=== PATIENT | female | born 1970 ===

== ENCOUNTER 2022-08-01 09:44 | Emergency (ER) | payer MEDICAID ==
[~2022-08-01] VITALS: Ht 157.5 cm; Wt 75.0 kg
[2022-08-01 10:00] VITALS: BP 140/93
[2022-08-01 10:44] LABS: Basophils # (auto) 0.1 10 ^3/uL (0-0.2); Basophils % (auto) 0.7 % (0.0-2.0); Eosinophils # (auto) 0.1 10 ^3/uL (0-0.8); Eosinophils % (auto) 1.5 % (0.0-7.0); Hemoglobin 14.2 g/dL (12.2-16.2); Lymphocytes # (auto) 2.3 10 ^3/uL (0.4-5.4); Lymphocytes % (auto) 29.3 % (10.0-50.0); Mean Corpuscular Hemoglobin 26.3 pg (28.0-32.0); Mean Corpuscular Hgb Conc. 33.1 g/dL (32.0-36.0); Mean Corpuscular Volume 79.4 fL (80.0-100.0); Monocytes # (auto) 0.3 10 ^3/uL (0-1.3); Monocytes % (auto) 4.2 % (0.0-12.0); Neutrophils % (auto) 64.3 % (37.0-80.0); Nucleated Red Blood Cells % 0.2 %; Red Blood Cells 5.42 10^6/uL (4.0-5.20); Red Cell Distribution Width 14.5 % (11.8-14.3); White Blood Cell 7.8 10^3/uL (4.4-10.8)
[2022-08-01 11:03] LABS: Albumin 3.8 g/dL (3.4-5.0); Calcium 8.9 mg/dL (8.5-10.1); Potassium 3.9 mmol/L (3.5-5.1)
[2022-08-01 11:06] LABS: INR 0.92 (0.9-1.15); Partial Thromboplastin Time 25.7 sec (24.6-33.4)
[2022-08-01 11:09] LABS: Bilirubin, Total 0.5 mg/dL (0.2-1.0); Total Protein 7.4 g/dL (6.4-8.2)
[2022-08-03] MEDS ORDERED: NIFE1TAB30 PO (16:17)
[2022-08-03] MEDS ORDERED: METF-370 PO (16:17)
[2022-08-03] MEDS ORDERED: LOSA-69 PO (16:17)
== END 2022-08-01 14:06 | disposition home or self-care (01) ==
LOC: ER 09:44
DX: R04.0 Epistaxis (principal); I10 Essential (primary) hypertension; E11.9 Type 2 diabetes mellitus without complications
CPT/HCPCS: 30901; 36415; 80053; 84484; 85025; 85610; 85730

== ENCOUNTER 2022-08-02 08:36 | Inpatient (IN) | payer MEDICAID ==
[~2022-08-02] VITALS: Ht 154.9 cm; Wt 75.4 kg
[2022-08-02] MEDS ORDERED: LABETALOL HCL 5 MG/ML 4ML SYRINGE IV ONE (09:15)
[2022-08-02] MEDS ORDERED: SODIUM CHLORIDE 0.9% 1,000 ML IV ONE (09:15)
[2022-08-02 09:22] LABS: Eosinophils # (auto) 0.1 10 ^3/uL (0-0.8); Monocytes % (auto) 5.2 % (0.0-12.0); Neutrophils # (auto) 3.8 10 ^3/uL (1.6-8.6)
[2022-08-02 09:24] LABS: Basophils # (auto) 0.1 10 ^3/uL (0-0.2); Basophils % (auto) 1.1 % (0.0-2.0); Eosinophils % (auto) 1.9 % (0.0-7.0); Hematocrit 41.7 % (36.0-46.0); Hemoglobin 13.9 g/dL (12.2-16.2); Lymphocytes # (auto) 2.4 10 ^3/uL (0.4-5.4); Lymphocytes % (auto) 35.5 % (10.0-50.0); Mean Corpuscular Hemoglobin 26.6 pg (28.0-32.0); Mean Corpuscular Hgb Conc. 33.5 g/dL (32.0-36.0); Mean Corpuscular Volume 79.4 fL (80.0-100.0); Monocytes # (auto) 0.4 10 ^3/uL (0-1.3); Neutrophils % (auto) 56.3 % (37.0-80.0); Nucleated Red Blood Cells % 0.2 %; Red Blood Cells 5.25 10^6/uL (4.0-5.20); Red Cell Distribution Width 14.3 % (11.8-14.3); White Blood Cell 6.8 10^3/uL (4.4-10.8)
[2022-08-02 09:43] LABS: INR 0.92 (0.9-1.15); Partial Thromboplastin Time 25.5 sec (24.6-33.4)
[2022-08-02 09:55] LABS: Albumin 3.8 g/dL (3.4-5.0); Magnesium 2.1 mg/dL (1.6-2.6)
[2022-08-02 09:59] LABS: BUN/Creatinine Ratio 24.6; Bilirubin, Total 0.5 mg/dL (0.2-1.0); Total Protein 7.6 g/dL (6.4-8.2)
[2022-08-02] MEDS ORDERED: hydrALAZINE HCL 20 MG/ML VL IV ONE (15:30)
[2022-08-02] MEDS ORDERED: HYDROcodone-ACET 5/325MG TAB PO PRN (15:45)
[2022-08-02] MEDS ORDERED: MORPHINE SULFATE INJ 2 MG/ml SYRG IV PRN (15:45)
[2022-08-02] MEDS ORDERED: LORazepam 0.5 MG TAB PO PRN (15:45)
[2022-08-02] MEDS ORDERED: DOCUSATE SOD 100 MG CAP PO PRN (15:45)
[2022-08-02] MEDS ORDERED: DEXTROSE (50%) 50ML SYRG IV PRN (15:45)
[2022-08-02] MEDS ORDERED: ACETAMINOPHEN 325 MG TAB PO PRN (15:45)
[2022-08-02] MEDS ORDERED: MAALOX PLUS or MAALOX 30 ML PO PRN (15:45)
[2022-08-02] MEDS ORDERED: ONDANSETRON HCL 4 MG/2 ML VIAL IV PRN (15:45)
[2022-08-02] MEDS: ACCU-CHEK COMFORT CURVE STRIP VI SCH ×2 (16:09→20:00)
[2022-08-02] MEDS: InsuLIN REG 1unit/0.01ml Soln (100units/ml) SC SCH ×2 (16:09→20:51)
[2022-08-03] MEDS: InsuLIN REG 1unit/0.01ml Soln (100units/ml) SC SCH ×5 (04:00→16:43)
[2022-08-03] MEDS: ACCU-CHEK COMFORT CURVE STRIP VI SCH ×5 (04:11→16:26)
[2022-08-03 06:40] LABS: Basophils # (auto) 0.1 10 ^3/uL (0-0.2); Eosinophils # (auto) 0.2 10 ^3/uL (0-0.8); Eosinophils % (auto) 2.3 % (0.0-7.0); Hematocrit 35.8 % (36.0-46.0); Hemoglobin 11.5 g/dL (12.2-16.2); Lymphocytes # (auto) 3.4 10 ^3/uL (0.4-5.4); Lymphocytes % (auto) 46.3 % (10.0-50.0); Mean Corpuscular Hemoglobin 25.8 pg (28.0-32.0); Mean Corpuscular Volume 80.5 fL (80.0-100.0); Monocytes # (auto) 0.5 10 ^3/uL (0-1.3); Monocytes % (auto) 6.6 % (0.0-12.0); Neutrophils # (auto) 3.2 10 ^3/uL (1.6-8.6); Neutrophils % (auto) 43.8 % (37.0-80.0); Red Blood Cells 4.45 10^6/uL (4.0-5.20); Red Cell Distribution Width 14.4 % (11.8-14.3); White Blood Cell 7.2 10^3/uL (4.4-10.8)
[2022-08-03 06:54] LABS: Potassium 3.8 mmol/L (3.5-5.1)
[2022-08-03 06:59] LABS: BUN/Creatinine Ratio 33.3; Calcium 8.8 mg/dL (8.5-10.1)
[2022-08-03 07:54] LABS: Urine Bacteria FEW /hpf (None Seen); Urine Blood 1+ /uL (Negative); Urine Mucus FEW (None Seen); Urine Specific Gravity 1.022 (1.001-1.035); Urine WBC 41 /hpf (0 - 5)
[2022-08-03] MEDS: hydrALAZINE HCL 20 MG/ML VL IV PRN ×2 (08:22→17:07)
[2022-08-03] MEDS ORDERED: amLODIPine BESYLATE 5 MG TAB PO SCH (10:00)
[2022-08-03] MEDS ORDERED: LOSARTAN POTASSIUM 50 MG TAB PO SCH (10:30)
[2022-08-03] MEDS ORDERED: HYDROcodone-ACET 7.5/325MG TAB PO ONE (16:15)
[2022-08-03] MEDS ORDERED: LOSA-69 PO ×2 (16:17)
[2022-08-03] MEDS ORDERED: NIFE1TAB30 PO ×2 (16:17)
[2022-08-03] MEDS ORDERED: METF-370 PO ×2 (16:17)
[2022-08-03 18:55] VITALS: BP 141/83
[2022-08-04] MEDS ORDERED: cefTRIAXone 1GM/50ML D5W 50 ML IV SCH (09:00)
== END 2022-08-03 19:00 | disposition home or self-care (01) | DRG 151 ==
LOC: ER 08:36 → TELE 15:42
PROVIDERS: ADMIT Hospitalist; ATTEND Hospitalist
DX: R04.0 Epistaxis (principal); N39.0 Urinary tract infection, site not specified; E11.65 Type 2 diabetes mellitus with hyperglycemia; E66.9 Obesity, unspecified; I16.0 Hypertensive urgency; I10 Essential (primary) hypertension; Z79.899 Other long term (current) drug therapy; Z68.31 Body mass index [BMI] 31.0-31.9, adult
CPT/HCPCS: 30901; 36415; 71045; 80048; 80053; 81001; 82962; 83036; 83735; 84484; 85025; 85610; 85730; 87426; 96361; 96372; 96374; 96375; 96376; G0378; J1815; J3490